=== PATIENT | female | born 1995 | race Caucasian/White ===

== ENCOUNTER 2017-11-10 20:41 | Emergency (ER) | payer MEDICAID ==
[2017-11-10 20:57] VITALS: O2SAT 100
--- NOTE | 2017-11-10 21:35 | C.PDOC ---
History Of Present Illness Patient is a 22 y/o female who presents to the ED with family BIBA s/p elbow to the left eye during a basketball game. Denies any LOC. Patient currently in ED applying ice to left eye. No other physical complaints at this time. Time Seen by Provider: 11/10/17 21:34 Chief Complaint (Nursing): Trauma History Per: Patient History/Exam Limitations: no limitations Injury Occurred (Timing): Just Before Arrival Onset/Duration Of Symptoms: Mins Patient States: Struck With Object (elbow to left eye) Severity: Mild Pain Scale Rating Of: 3 Loss Of Consciousness: No Recent travel outside of the [place]: No Additional History Per: Patient Past Medical History Reviewed: Historical Data, Nursing Documentation, Vital Signs Vital Signs: Last Vital Signs Temp 98.1 F 11/10/17 23:29 Pulse 64 11/10/17 23:29 Resp 20 11/10/17 23:29 BP 105/66 11/10/17 23:29 Pulse Ox 100 11/11/17 00:05 - Medical History PMH: Anemia, Hypothyroidism Surgical History: No Surg Hx Family History: States: No Known Family Hx - Social History Hx Tobacco Use: No Hx Alcohol Use: Yes Hx Substance Use: No - Immunization History Hx Tetanus Toxoid Vaccination: Yes Hx Influenza Vaccination: No Hx Pneumococcal Vaccination: No Review Of Systems Eyes: Positive for: Other (left eye pain and swelling) Neurological: Positive for: Other (denies any LOC). Negative for: Weakness, Numbness, Incoordination Physical Exam - Physical Exam Appears: Well, Non-toxic, No Acute Distress Skin: Warm, Dry, Ecchymosis (to left eyelid and orbit), Other (tenderness and swelling to left eye) Head: Normacephalic, Swelling, Abrasion Eye(s): bilateral: Normal Inspection, PERRL, EOMI Ear(s): Bilateral: Normal Nose: Normal Oral Mucosa: Moist Teeth: Normal Dentition Neck: Trachea Midline, No Paracervical Tenderness, Supple Chest: Symmetrical Cardiovascular: Rhythm Regular, Murmur Respiratory: No Rales, No Rhonchi, No Wheezing Gastrointestinal/Abdominal: Soft, No Tenderness, No Distention Back: Normal Inspection Extremity: Normal ROM Neurological/Psych: Oriented x3, Normal Speech, Normal Cognition, Other (no focal deficits) Gait: Steady ED Course And Treatment O2 Sat by Pulse Oximetry: 100 Pulse Ox Interpretation: Normal - CT Scan/US CT Head Other Rad Studies (CT/US): Interpreted By Me, Read By Radiologist CT/US Interpretation: EXAM: CT Head Without Intravenous Contrast. EXAM DATE/ TIME: 11/10/2017 9:35 PM. CLINICAL HISTORY: 22 years old, female; Injury or trauma; Injury Sport; Initial encounter; Abrasion; Head, generalized;. Additional info: Hit, . syncope. TECHNIQUE: Axial computed tomography images of the head/brain without intravenous contrast. All CT scans at. this facility use one or more dose reduction techniques, viz.: automated exposure control; ma/ kV. adjustment per patient size (including targeted exams where dose is matched to indication; i.e. head);. or iterative reconstruction technique. COMPARISON: No relevant prior studies available. FINDINGS: No intracranial hemorrhage. No extra axial collections. No intracranial edema. No fluid in the sinuses or mastoid air cells. No depressed fractures. IMPRESSION: No acute intracranial injury. Thank you for allowing us to participate in the care of your patient. Progress Note: Head CT, Orbit/facial CT, UA, and HCG urine ordered. Concussion care instructions discussed with patient and family; patient to be discharged. Reevaluation Time: 00:10 Reassessment Condition: Improved Disposition Counseled Patient/Family Regarding: Studies Performed, Diagnosis, Need For Followup - Disposition Referrals: [facility] [Outside] [facility] [Outside] Sofy Lee MD [Staff Provider] - Disposition: HOME/ ROUTINE Disposition Time: 21:34 Condition: FAIR Additional Instructions: No sports or strenuous activities for at least 1 week Instructions: Eye Contusion (DC), Taking Care of Bruises, Black Eye Forms: [employer] (Thai) - Clinical Impression Clinical Impression: Minor head injury without loss of consciousness, Facial contusion, Concussion - Scribe Statement The provider has reviewed the documentation as recorded by the Scribe Montse Cote All medical record entries made by the Scribe were at my direction and personally dictated by me. I have reviewed the chart and agree that the record accurately reflects my personal performance of the history, physical exam, medical decision making, and the department course for this patient. I have also personally directed, reviewed, and agree with the discharge instructions and disposition.
[2017-11-10 22:04] LABS: SQUAMOUS EPITHIAL 9 /hpf (0-5); URINE BILIRUBIN NEGATIVE (NEGATIVE); URINE BLOOD NEGATIVE (NEGATIVE); URINE CLARITY Hazy (Clear); URINE COLOR Straw (YELLOW); URINE GLUCOSE (UA) NORMAL (Normal); URINE LEUKOCYTE ESTERASE TRACE Leu/uL (Negative); URINE PROTEIN NEGATIVE (NEGATIVE); URINE UROBILINOGEN NORMAL mg/dL (0.2-1.0)
[2017-11-10 22:22] LABS: HCG,QUALITATIVE URINE NEGATIVE (NEGATIVE)
[2017-11-10 23:30] VITALS: BP 105/66; PULSE 64; RESP 20; TEMP 98.1
--- NOTE | 2017-11-10 23:55 | CT ---
EXAM: CT Head Without Intravenous Contrast EXAM DATE/TIME: 11/10/2017 9:35 PM CLINICAL HISTORY: 22 years old, female; Injury or trauma; Injury Sport; Initial encounter; Abrasion; Head, generalized; Additional info: Hit, . syncope TECHNIQUE: Axial computed tomography images of the head/brain without intravenous contrast. All CT scans at this facility use one or more dose reduction techniques, viz.: automated exposure control; ma/kV adjustment per patient size (including targeted exams where dose is matched to indication; i.e. head); or iterative reconstruction technique. COMPARISON: No relevant prior studies available. FINDINGS: No intracranial hemorrhage. No extra axial collections. No intracranial edema. No fluid in the sinuses or mastoid air cells. No depressed fractures. IMPRESSION: No acute intracranial injury.
--- NOTE | 2017-11-11 00:05 | CT ---
EXAM: CT Orbits Without Intravenous Contrast EXAM DATE/TIME: 11/10/2017 9:35 PM CLINICAL HISTORY: 22 years old, female; Injury or trauma; Injury Sport; Initial encounter; Abrasion; Orbit/periorbital; Left; Additional info: Hit, pain TECHNIQUE: Axial computed tomography images of the orbits without intravenous contrast. All CT scans at this facility use one or more dose reduction techniques, viz.: automated exposure control; ma/kV adjustment per patient size (including targeted exams where dose is matched to indication; i.e. head); or iterative reconstruction technique. Coronal and sagittal reformatted images were created and reviewed. COMPARISON: No relevant prior studies available. FINDINGS: There is left periorbital soft tissue swelling. There is no hemorrhage within the oral globe. There is no stranding surrounding the extraocular muscles. There is no significant fluid in the sinuses or mastoid air cells. No fractures. IMPRESSION: No acute fractures.
== END 2017-11-11 00:22 | disposition home or self-care (01) ==
LOC: C.ER 20:41
DX: S05.12XA Contusion of eyeball and orbital tissues, left eye, initial encounter (principal); S06.0X0A Concussion without loss of consciousness, initial encounter; W50.0XXA Accidental hit or strike by another person, initial encounter; Y93.67 Activity, basketball

== ENCOUNTER 2018-01-20 19:32 | Emergency (ER) | payer MEDICAID ==
[2018-01-20 19:45] VITALS: BP 102/59; PULSE 67; TEMP 98.1; O2SAT 97
--- NOTE | 2018-01-20 20:40 | C.PDOC ---
History Of Present Illness 22 y/o female presents to the ER complaining of right ankle pain after she twisted her right ankle 3 days ago. Time Seen by Provider: 01/20/18 19:53 Chief Complaint (Nursing): Lower Extremity Problem/Injury History Per: Patient History/Exam Limitations: no limitations Onset/Duration Of Symptoms: Days (3) Current Symptoms Are (Timing): Still Present Severity: Mild - Ankle/Foot Description Of Injury: Twisted Alleviating Factor(s): Ice Therapy, Elevation, OTC Pain Medication Past Medical History Reviewed: Historical Data, Nursing Documentation, Vital Signs Vital Signs: Last Vital Signs Temp 98.1 F 01/20/18 19:41 Pulse 67 01/20/18 19:41 Resp 20 01/20/18 21:11 BP 102/59 L 01/20/18 19:41 Pulse Ox 97 01/20/18 20:51 - Medical History PMH: Anemia, Hypothyroidism Surgical History: No Surg Hx Family History: States: No Known Family Hx - Social History Hx Tobacco Use: No Hx Alcohol Use: Yes Hx Substance Use: No - Immunization History Hx Tetanus Toxoid Vaccination: Yes Hx Influenza Vaccination: No Hx Pneumococcal Vaccination: No Review Of Systems Except As Marked, All Systems Reviewed And Found Negative. Musculoskeletal: Positive for: Other (right ankle pain) Physical Exam - Physical Exam Appears: Non-toxic, No Acute Distress Skin: Warm, Dry, No Ecchymosis Head: Atraumatic, Normacephalic Eye(s): bilateral: Normal Inspection Extremity: Normal ROM, Tenderness (mild tenderness to lateral aspect of right ankle), No Pedal Edema, No Calf Tenderness, No Deformity, Swelling (mild swelling to lateral aspect of right ankle) Pulses: Right Dorsalis Pedis: Normal Neurological/Psych: Oriented x3, Normal Speech Gait: Steady ED Course And Treatment O2 Sat by Pulse Oximetry: 97 (RA) Pulse Ox Interpretation: Normal Medical Decision Making Medical Decision Making: Plan: XRay of Right Ankle Progress: X-Ray of Right Ankle showed no fracture or dislocation as viewed by me. Aircast splint was applied by generator technician. Patient has been discharged and instructed to rest,ice ,and elevate. Disposition Counseled Patient/Family Regarding: Diagnosis, Need For Followup, Rx Given - Disposition Referrals: Royer Odell MD [Staff Provider] - Disposition: HOME/ ROUTINE Disposition Time: 20:39 Condition: GOOD Additional Instructions: Your xray was normal, no fracture. Please apply ice to area 15 minutes three times a day. Take Motrin as needed for pain every 6 hours, with food to not upset stomach. Follow up with orthopedic if pain persists over one week. Prescriptions: Ibuprofen [Motrin] 600 mg PO Q8 #30 tab Instructions: Ankle Sprain (DC) Forms: [employer] (Frisian) - POA Present On Arrival: None - Clinical Impression Clinical Impression: Ankle sprain - PA / SUPPLIER QUALITY ENGINEERING MANAGER / Resident Statement MD/DO has reviewed & agrees with the documentation as recorded. - Scribe Statement The provider has reviewed the documentation as recorded by the Shayan Edgar Provider Attestation All medical record entries made by the Anneliseibe were at my direction and personally dictated by me. I have reviewed the chart and agree that the record accurately reflects my personal performance of the history, physical exam, medical decision making, and the department course for this patient. I have also personally directed, reviewed, and agree with the discharge instructions and disposition.
[2018-01-20 21:12] VITALS: RESP 20
--- NOTE | 2018-01-21 09:04 | RAD ---
PROCEDURE: Right Ankle Radiographs. HISTORY: pain s.p twisting injury 2 days ago COMPARISON: None FINDINGS: BONES: Normal. No fracture. JOINTS: Normal. No osteoarthritis. Ankle mortise maintained. Talar dome intact SOFT TISSUES: Normal. OTHER FINDINGS: None. IMPRESSION: Normal right ankle radiographs.
== END 2018-01-20 21:11 | disposition home or self-care (01) ==
LOC: SUPCPDRO 19:32 → C.ER 19:32
DX: S93.401A Sprain of unspecified ligament of right ankle, initial encounter (principal); X50.1XXA Overexertion from prolonged static or awkward postures, initial encounter